=== PATIENT | male | born 1955 | race Caucasian/White ===

== ENCOUNTER 2020-10-25 06:03 | Observation (INO) | payer OTHER ==
[2020-10-24 14:26] VITALS: BMI 22.6
[2020-10-25] MEDS ORDERED: Thrombin 5000 UNITS/5 ML VIAL ONE (06:37)
[2020-10-25] MEDS ORDERED: Fentanyl 100 MCG/2 ML VIAL ONE ×4 (06:59→11:12)
[2020-10-25] MEDS ORDERED: Midazolam HCl 2 mg/2 ml Vial ONE (07:00)
[2020-10-25] MEDS ORDERED: Ketamine 50 MG/ML (10ML VIAL) ONE (07:01)
[2020-10-25 07:17] LABS: PTT 29.6 sec (22.9-36.1)
[2020-10-25] MEDS ORDERED: Glycopyrrolate 0.2 MG/ML 5 ML SYRINGE ONE (07:28)
[2020-10-25] MEDS ORDERED: PROPOFOL 200 MG/20 ML VIAL ONE (07:28)
[2020-10-25] MEDS ORDERED: Ketorolac Tromethamine 30 MG/ML VIAL ONE (07:28)
[2020-10-25] MEDS ORDERED: Ondansetron PF 4 MG/2 ML Vial ONE (07:28)
[2020-10-25] MEDS ORDERED: diphenhydrAMINE 50 MG/ML VIAL ONE (07:28)
[2020-10-25] MEDS ORDERED: Dexamethasone 20 MG/5 ML VIAL ONE (07:28)
[2020-10-25] MEDS ORDERED: Rocuronium Bromide 10 MG/ML (10ML VIAL) ONE (07:28)
[2020-10-25] MEDS ORDERED: HYDROmorphone 2 MG/ML VIAL ONE (08:50)
[2020-10-25] MEDS ORDERED: Morphine 2 MG/ML VIAL SLOW IVP PRN (10:28)
[2020-10-25] MEDS ORDERED: Ondansetron PF 4 MG/2 ML Vial IVP PRN (10:28)
[2020-10-25] MEDS ORDERED: Acetaminophen 325 MG TAB PO PRN (10:28)
[2020-10-25] MEDS ORDERED: traMADol HCl 50 MG TAB PO PRN (10:28)
[2020-10-25] MEDS ORDERED: diphenhydrAMINE 50 MG/ML VIAL IVP PRN (10:28)
[2020-10-25] MEDS ORDERED: Bisacodyl 10 MG SUPP PR PRN (10:28)
[2020-10-25] MEDS ORDERED: Milk Of Magnesia 30 ML UDCUP PO PRN (10:28)
[2020-10-25] MEDS ORDERED: Buprenorphine HCl 2 MG SL TAB PO PRN (10:41)
[2020-10-25] MEDS: HYDROcodone/Acetaminophen 7.5/325 mg Tablet PO PRN ×2 (13:02→19:43)
[2020-10-25] MEDS: Sodium Chloride 0.9% 1,000 ML IV SCH (13:03)
[2020-10-25] MEDS: CEFAZOLIN 2 GM in Premix Bag 1 BAG IVPB SCH ×2 (13:04→21:22)
[2020-10-25] MEDS: Acetaminophen/Codeine 30-300mg Tablet PO PRN (14:25)
[2020-10-25] MEDS: tiZANidine HCl 4 MG TAB PO PRN ×2 (16:24→19:42)
[2020-10-26] MEDS: Acetaminophen/Codeine 30-300mg Tablet PO PRN ×2 (00:16→09:38)
[2020-10-26] MEDS: Sodium Chloride 0.9% 1,000 ML IV SCH ×3 (06:05→11:31)
[2020-10-26] MEDS ORDERED: Acetaminophen 500 MG TAB PO PRN (09:47)
[2020-10-26 11:25] VITALS: BP 111/66; TEMP 97.7
== END 2020-10-26 11:45 | disposition home or self-care (01) ==
LOC: SDC 06:03 → SURG B 10:28
PROVIDERS: ADMIT Surgery; ATTEND Surgery
PROC: 01NB0ZZ Release Lumbar Nerve, Open Approach (ICD-10-PCS; principal; 2020-10-25)
PROC: 0ST20ZZ Resection of Lumbar Vertebral Disc, Open Approach (ICD-10-PCS; 2020-10-25)
PROC: 01NB0ZZ Release Lumbar Nerve, Open Approach (ICD-10-PCS; 2020-10-25)
PROC: 0QB00ZZ Excision of Lumbar Vertebra, Open Approach (ICD-10-PCS; 2020-10-25)
DX: M48.061 Spinal stenosis, lumbar region without neurogenic claudication (principal); M51.16 Intervertebral disc disorders with radiculopathy, lumbar region; M71.38 Other bursal cyst, other site; M51.27 Other intervertebral disc displacement, lumbosacral region; F17.200 Nicotine dependence, unspecified, uncomplicated; M19.90 Unspecified osteoarthritis, unspecified site; G89.4 Chronic pain syndrome; G43.909 Migraine, unspecified, not intractable, without status migrainosus; Z98.1 Arthrodesis status; Z98.890 Other specified postprocedural states
CPT/HCPCS: 76000; 85610; 85730; 96365; 96376; G0378; J0690; J1100; J1170; J1200; J1885; J2250; J2405; J2704; J3010; J3370